=== PATIENT | male | born 1985 | race Caucasian/White ===

== ENCOUNTER 2020-09-30 23:40 | Emergency (ER) | payer OTHER ==
[~2020-09-30 23:40] MED LIST: BENTYL 20MG TAB20 MG PO; PHENERGAN 25 MG25 M1 PO; ZOFRAN 4 MG TAB4 MG PO; ZOFRAN4 MG PO
[2020-10-01 03:13] LABS: HEMOGLOBIN 12.9 gm/dl (14.0-17.5); RED BLOOD COUNT 4.7 M/UL (4.20-5.50); WHITE BLOOD COUNT 9.9 K/UL (4.5-11.0)
[2020-10-01 03:41] LABS: BUN/CREATININE RATIO 13 (0-10)
== END 2020-10-01 04:48 | disposition home or self-care (01) ==
LOC: ER1 23:40
PROVIDERS: Family Medicine
DX: I10 Essential (primary) hypertension (principal); R10.10 Upper abdominal pain, unspecified; M79.622 Pain in left upper arm; M79.621 Pain in right upper arm; Z88.8 Allergy status to other drugs, medicaments and biological substances; Z79.899 Other long term (current) drug therapy
CPT/HCPCS: 71045; 80053; 82550; 82553; 83690; 83874; 84484; 85025; 93005; 99284

== ENCOUNTER → 2021-03-17 | Outpatient (CLI) | payer OTHER | LOC: HEART 5 01-01 11:30 | DX: R07.9 Chest pain, unspecified (principal); Z86.79 Personal history of other diseases of the circulatory system | CPT/HCPCS: 93306 ==